=== PATIENT | female | born 1950 | race Caucasian/White ===

== ENCOUNTER 2017-07-02 16:27 | Outpatient (CLI) | payer OTHER | END 2017-07-02 18:59 | disposition home or self-care (01) | LOC: SMA 16:27 | PROVIDERS: ATTEND Family Medicine | DX: Z12.31 Encounter for screening mammogram for malignant neoplasm of breast (principal) | CPT/HCPCS: G0202 ==

== ENCOUNTER 2018-01-14 09:55 | Outpatient (CLI) | payer OTHER | END 2018-01-14 19:38 | disposition home or self-care (01) | LOC: SMA 09:55 | PROVIDERS: ATTEND Family Medicine | DX: R92.8 Other abnormal and inconclusive findings on diagnostic imaging of breast (principal) | CPT/HCPCS: 76642; 77065 ==